=== PATIENT | female | born 1940 | race Caucasian/White ===

== ENCOUNTER 2021-02-04 21:37 | Inpatient (IN) | payer OTHER, SELFPAY ==
[~2021-02-04] VITALS: Ht 162.6 cm; Wt 109.8 kg
[2021-02-04 21:40] VITALS: BP_SYST 151
--- NOTE | 2021-02-04 21:40 | NUR ---
PT TO BED 1, GOWNED AND ATTACHED TO CASE MANAGER SPECIALIST.
--- NOTE | 2021-02-04 21:45 | NUR ---
ER at bedside examining patient.
[2021-02-04] MEDS ORDERED: NACL 0.9% 1,000 ML IV ONE (22:00)
[2021-02-04] MEDS ORDERED: GLUCAGON,HUMAN RECOMBINANT 1 MG VIAL IVP ONE (22:00)
[2021-02-04] MEDS ORDERED: ATROPINE SULFATE 1 MG/10 ML SYRINGE IVP ONE (22:00)
[2021-02-04] MEDS ORDERED: CALCIUM GLUCONATE 1 GM/10 ML VIAL ONE (22:10)
[2021-02-04] MEDS ORDERED: CALCIUM GLUCONATE 1 GM in NS 100 ML IV ONE (22:15)
--- NOTE | 2021-02-04 22:17 | NUR ---
PT [facility]. A&OX4. AT 1800,PT HAD EATEN DINNER AND WHILE SHE WAS PLAYING AROUND WITH HER GRANDKIDS, SHE FEL LIKE BLACKING OUT AND HAD A SEAT ON A CHAIR.- FALL. PT DIDNT FEEL GOOD AND AT AROUND 2130 HAD FAMILY CALL 911. UPON ARRIVAL OF EMS, PT HAD A HEART RATE AROUND THE 40S, SINUS ROBBIN. PT HAS A HX OF AFIB, AND DIABETES. PT HAS 0/10 PAIN AND -N/V AND -SOB.
[2021-02-04 22:33] LABS: BASOPHILS % (AUTO) 0.6 % (0.0-2.0); EOSINOPHILS # (AUTO) 0.3 K/uL (0.0-0.4); EOSINOPHILS % (AUTO) 3.5 % (0.0-4.0); HEMATOCRIT 37.5 % (36-48); HEMOGLOBIN 12.8 g/dL (12.0-16.0); LYMPHOCYTES # (AUTO) 1.7 K/uL (1.0-5.5); LYMPHOCYTES % (AUTO) 21.9 % (20.5-51.5); MEAN CORPUSCULAR HEMOGLOBIN 31 pg (27-31); MEAN CORPUSCULAR HGB CONC 34 % (32-36); MEAN CORPUSCULAR VOLUME 89 fL (79.0-98.0); MONOCYTES # (AUTO) 0.6 K/uL (0.0-1.0); MONOCYTES % (AUTO) 7.3 % (1.7-9.3); NEUTROPHILS # (AUTO) 5.2 K/uL (1.8-7.7); NEUTROPHILS % (AUTO) 66.7 % (40.0-70.0); PLATELET COUNT (AUTO) 178 K/uL (130-430); RED BLOOD CELL COUNT(AUTO) 4.21 MIL/uL (4.2-6.2); WHITE BLOOD COUNT (AUTO) 7.8 K/uL (4.8-10.8)
--- NOTE | 2021-02-04 22:40 | NUR ---
BELONGINGS LIST COMPLETE
[2021-02-04 22:41] LABS: ANION GAP 9 (5-15); CALCIUM 9.3 mg/dL (8.4-11.0); CHLORIDE 107 mmol/L (98-107); GLUCOSE 186 mg/dL (70-99); SODIUM SERUM 140 mmol/L (136-145); UREA NITROGEN, BLOOD 24 mg/dL (8-21)
[2021-02-04] MEDS ORDERED: DOPamine PREMIX 250 ML IV ONE (22:45)
--- NOTE | 2021-02-04 22:46 | NUR ---
PT STARTED ON DOPAMINE. 5MCG/KG/MIN. PTS VITAL SIGNS UPDATED
[2021-02-04 22:50] LABS: ALANINE AMINOTRANSFERASE 35 U/L (12-78); ALBUMIN 3.1 g/dL (3.4-4.8); ASPARTATE AMINOTRANSFERASE 35 U/L (10-37); PHOSPHORUS 2.9 mg/dL (2.7-4.5); TOTAL BILIRUBIN 0.4 mg/dL (0.0-1.0)
[2021-02-04] MEDS ORDERED: METO25TA6 PO (23:02)
[2021-02-04] MEDS ORDERED: LOVA20TA2 PO (23:02)
[2021-02-04] MEDS ORDERED: GLIM1TAB PO (23:02)
[2021-02-04] MEDS ORDERED: RIVA20TA PO (23:02)
[2021-02-04] MEDS ORDERED: GLU500 PO (23:02)
[2021-02-04] MEDS ORDERED: LEVO137C4 PO (23:02)
--- NOTE | 2021-02-04 23:03 | NUR ---
PT IS FULL CODE
--- NOTE | 2021-02-04 23:03 | NUR ---
MED REC DONE
--- NOTE | 2021-02-04 23:23 | NUR ---
DOPAMINE DISCONTINUED PER DR WILLIS
[2021-02-05] VITALS (7 sets, daily range): BP systolic 129–155
[2021-02-05] MEDS ORDERED: INSULIN REGULAR, HUMAN 100 UNITS/ML, 10 ML VIAL (humuLIN R) SUBCUT PRN
[2021-02-05] MEDS ORDERED: ACETAMINOPHEN 325 MG TABLET PO PRN
[2021-02-05] MEDS ORDERED: DOPamine PREMIX 250 ML IV ONE
[2021-02-05] MEDS ORDERED: ALBUTEROL SULFATE 0.083% 2.5 MG/3 ML VIAL.NEB INH PRN
--- NOTE | 2021-02-05 00:46 | NUR ---
Patient will be admitted to care of . Admitted to TELE unit. Will go to room 113. Belongings list completed. Complete and up to date summary report printed. SBAR report to be given at bedside with opportunity for questions.
--- NOTE | 2021-02-05 00:46 | NUR ---
Transfer to TELE via ACLS protocol. Licensed nurse present. IV present no signs or symptoms of infiltration.
--- NOTE | 2021-02-05 00:50 | NUR ---
ADMIT NOTE Received pt from ER to the floor with a diagnosis of Heart Block. Admission process initiated. patient oriented to pain management, safety and call light-teach back done.
--- NOTE | 2021-02-05 01:15 | NUR ---
Spoke with Dr. Shea Notified MD that dopamine is okay to give on the floor with no titration. Per MD, okay to hold dopamine for now and to transfer patient to ICU when bed is available. PRN orders input for Atropine for HR <42. Patient is in stable condition at this time. No signs of distress noted. Breathing even and unlabored on room air.
[2021-02-05] MEDS ORDERED: ATROPINE SULFATE 0.4 MG/ML VIAL IVP PRN (01:45)
--- NOTE | 2021-02-05 02:00 | NUR ---
Spoke with Dr. Shea Informed MD about patient condition and current cardiac rhythm. Patient also complaining of indigestion. New orders received for Protonix. RN read back and verified order.
[2021-02-05] MEDS ORDERED: PANTOPRAZOLE SODIUM 40 MG/VIAL (PROTONIX) IVP ONE (02:30)
--- NOTE | 2021-02-05 02:49 | NUR ---
CONSULT: CONSULT CALLED FOR DR. BELTRAN I SPOKE WITH GLORY DON REASON FOR CONSULT: BRADYCARDIA REQUESTING CONSULT: DR. DUNN MARKETING INFORMATION COORDINATOR PHONE NUMBER: [phone]
[2021-02-05] MEDS: LEVOTHYROXINE SODIUM 0.137 MG TABLET PO SCH (06:32)
[2021-02-05 06:55] LABS: BASOPHILS % (AUTO) 0.4 % (0.0-2.0); EOSINOPHILS # (AUTO) 0.2 K/uL (0.0-0.4); EOSINOPHILS % (AUTO) 2.2 % (0.0-4.0); HEMATOCRIT 36.5 % (36-48); HEMOGLOBIN 12.3 g/dL (12.0-16.0); LYMPHOCYTES # (AUTO) 2.1 K/uL (1.0-5.5); LYMPHOCYTES % (AUTO) 20.1 % (20.5-51.5); MEAN CORPUSCULAR HEMOGLOBIN 30 pg (27-31); MEAN CORPUSCULAR HGB CONC 34 % (32-36); MEAN CORPUSCULAR VOLUME 90 fL (79.0-98.0); MONOCYTES # (AUTO) 0.8 K/uL (0.0-1.0); MONOCYTES % (AUTO) 8.1 % (1.7-9.3); NEUTROPHILS # (AUTO) 7.2 K/uL (1.8-7.7); NEUTROPHILS % (AUTO) 69.2 % (40.0-70.0); PLATELET COUNT (AUTO) 177 K/uL (130-430); RED BLOOD CELL COUNT(AUTO) 4.06 MIL/uL (4.2-6.2); RED CELL DISTRIBUTION WIDTH 13.3 % (9.0-15.0); WHITE BLOOD COUNT (AUTO) 10.4 K/uL (4.8-10.8)
--- NOTE | 2021-02-05 06:56 | NUR ---
Dr. French Rounds Seen and examined patient. Reviewed stat EKG. Updated on patient condition. Cancel transfer to ICU.
--- NOTE | 2021-02-05 06:58 | NUR ---
Closing notes Patient is resting in bed, no signs of distress noted. Breathing even and unlabored on room air. No complaints of chest pain or discomfort. IV patent and intact, no signs of infiltration noted. HR on monitor is 48-55 bpm at this time. All needs met throughout the shift. Call light with the patient. Safety precautions in place. Will endorse care to day shift RN.
[2021-02-05 07:27] LABS: ANION GAP 9 (5-15); CALCIUM 9.3 mg/dL (8.4-11.0); CHLORIDE 110 mmol/L (98-107); CREATININE 1.27 mg/dL (0.55-1.30); GLUCOSE 143 mg/dL (70-99); POTASSIUM 4.1 mmol/L (3.5-5.1); SODIUM SERUM 141 mmol/L (136-145); UREA NITROGEN, BLOOD 23 mg/dL (8-21)
[2021-02-05 07:41] LABS: ALANINE AMINOTRANSFERASE 32 U/L (12-78); ALBUMIN 2.8 g/dL (3.4-4.8); ASPARTATE AMINOTRANSFERASE 25 U/L (10-37); THYROID STIMULATING HORMONE 0.58 uIu/mL (0.36-3.74); TOTAL BILIRUBIN 0.4 mg/dL (0.0-1.0)
--- NOTE | 2021-02-05 08:00 | NUR ---
Patient is resting in bed, no signs of distress noted. Breathing even and unlabored on room air. No complaints of chest pain or discomfort. IV patent and intact, no signs of infiltration noted. Vital signs WNL except for HR 42bpm. Call light with the patient. Safety precautions in place. Will continue to monitor
[2021-02-05] MEDS: ATORVASTATIN 10 MG TABLET PO SCH (09:02)
[2021-02-05] MEDS: RIVAROXABAN 10 MG TABLET PO SCH (09:23)
[2021-02-05] MEDS ORDERED: GLUCOSE (DEXTROSE) ORAL GEL -Adults PO PRN (10:00)
[2021-02-05] MEDS ORDERED: DEXTROSE 50% JECT 50 ML DISP.SYRIN IVP PRN (10:00)
[2021-02-05] MEDS ORDERED: D5W 1,000 ML IV PRN (10:00)
--- NOTE | 2021-02-05 10:07 | NUR ---
Nutrition Update Luisito Scale 18 noted. Pt admitted for heart block. Diet: [facility] BMI: 41.5 kg/m2 RD to follow per nutrition care standards.
[2021-02-05] MEDS ORDERED: THEOPHYLLINE ANHYDROUS 300 MG TAB.SR.12H PO ONE (10:15)
[2021-02-05] MEDS ORDERED: PANTOPRAZOLE SODIUM 40 MG TAB PO ONE (12:30)
--- NOTE | 2021-02-05 15:23 | NUR ---
Dietitian Recommendations * Recommend CCHO, cardiac diet * RD to provide diabetic and heart-healthy MNT LP, RD Please refer to Nutrition Assessment for details. Addendum: 02/05/21 at [address] Amended: Links added.
--- NOTE | 2021-02-05 18:23 | NUR ---
Patient is resting in bed, no signs of distress noted. Breathing even and unlabored on room air. No complaints of chest pain or discomfort. IV patent and intact, no signs of infiltration noted. All needs met throughout the shift. Call light with the patient. Safety precautions in place. Will endorse care to nightshift RN.
--- NOTE | 2021-02-05 19:30 | NUR ---
Opening notes Received report. Patient is resting in bed, no signs of distress noted. Breathing even and unlabored on room air. IV patent and intact, no signs of infiltration noted. HR on monitor is in the 50s. No needs at this time. Call light with the patient. Safety precautions in place.
[2021-02-05] MEDS: THEOPHYLLINE ANHYDROUS 300 MG TAB.SR.12H PO SCH (21:12)
[2021-02-06 01:00] VITALS: BP_SYST 144
--- NOTE | 2021-02-06 03:32 | NUR ---
RN rounds Patient A&Ox4 with moments of forgetfulness. Reoriented patient. No signs of distress noted. Breathing even and unlabored on room air. No needs at this time. Call light with the patient. Safety precautions in place.
[2021-02-06] MEDS: LEVOTHYROXINE SODIUM 0.137 MG TABLET PO SCH (06:14)
--- NOTE | 2021-02-06 06:41 | NUR ---
Closing notes Patient is resting in bed, no signs of distress noted. Breathing even and unlabored on room air. No complaints of chest pain or discomfort. IV patent and intact, no signs of infiltration noted. HR on monitor is 70 bpm at this time. All needs met throughout the shift. Call light with the patient. Safety precautions in place. Will endorse care to day shift RN.
[2021-02-06 07:53] VITALS: BP_SYST 150
--- NOTE | 2021-02-06 08:00 | NUR ---
Patient is resting in bed, no signs of distress noted. Breathing even and unlabored on room air. No complaints of chest pain or discomfort. IV patent and intact, no signs of infiltration noted. HR on monitor is 72 bpm at this time. Call light with the patient. Safety precautions in place. Will continue to monitor
[2021-02-06] MEDS: ATORVASTATIN 10 MG TABLET PO SCH (08:20)
[2021-02-06] MEDS: THEOPHYLLINE ANHYDROUS 300 MG TAB.SR.12H PO SCH (08:21)
[2021-02-06] MEDS: RIVAROXABAN 10 MG TABLET PO SCH (08:22)
[2021-02-06] MEDS ORDERED: PANTOPRAZOLE SODIUM 40 MG TAB PO SCH (09:00)
--- NOTE | 2021-02-06 10:23 | NUR ---
BOAT OUTBOARD ENGINE MECHANIC CALLED PAGED AT [phone] SPOKE WITH
--- NOTE | 2021-02-06 11:35 | NUR ---
2ND PAGE OUT TO PAGED ELIZABETH FAUSTIN AT [phone] SPOKE WITH
[2021-02-06] MEDS ORDERED: THEO300T45 PO (11:51)
[2021-02-06 12:09] VITALS: BP_SYST 158
[2021-02-06 12:14] VITALS: BP_SYST 150
--- NOTE | 2021-02-06 12:44 | NUR ---
D/C Patient Patient given medication reconciliation form and D/C instructions. Exit Care provided. Patient verbalized understanding. MD discussed with patient the results and treatment provided. Ambulatory with steady gait for discharge to home. Patient in stable condition, ID band removed. IV catheter removed, intact and dressing applied, no active bleeding. Rx of theophylline given. Patient educated on pain management. All belongings sent with patient.
--- NOTE | 2021-02-07 06:18 | NUR ---
LATE ENTRY: ARR ANGED WITH [employer] MS IRMA JOHNSON. FAXED CLINICALS.
== END 2021-02-06 12:44 | disposition home health service (06) | DRG 309 ==
LOC: SED 21:37 → STU 23:50
PROVIDERS: ADMIT Internal Medicine Hospice and Palliative Medicine; ATTEND Internal Medicine Hospice and Palliative Medicine
DX: I44.2 Atrioventricular block, complete (principal); E44.0 Moderate protein-calorie malnutrition; R00.1 Bradycardia, unspecified; E11.9 Type 2 diabetes mellitus without complications; I10 Essential (primary) hypertension; E78.5 Hyperlipidemia, unspecified; I48.91 Unspecified atrial fibrillation; E89.0 Postprocedural hypothyroidism; Z20.822 Contact with and (suspected) exposure to COVID-19; F03.90 Unspecified dementia, unspecified severity, without behavioral disturbance, psychotic disturbance, mood disturbance, and anxiety; Z88.5 Allergy status to narcotic agent; Z79.899 Other long term (current) drug therapy; Z79.890 Hormone replacement therapy; Z79.01 Long term (current) use of anticoagulants; Z79.84 Long term (current) use of oral hypoglycemic drugs; Z86.73 Personal history of transient ischemic attack (TIA), and cerebral infarction without residual deficits; Z98.51 Tubal ligation status; N18.2 Chronic kidney disease, stage 2 (mild)
CPT/HCPCS: 36415; 71045; 80053; 82962; 83735; 83880; 84100; 84443; 84484; 85025; 87081; 93005; 93306; 96365; 96375; 99291; C9113; G0378; J0461; J0610; J1265; J1610; J1815